=== PATIENT | female | born 1990 | race African-American/Black ===

== ENCOUNTER 2017-06-02 16:16 | Emergency (ER) | payer MEDICAID ==
[~2017-06-02] VITALS: Ht 172.7 cm; Wt 69.0 kg
[2017-06-02] MEDS ORDERED: KETOROLAC 60MG/2ML VIAL IM ONE (18:15)
[2017-06-02] MEDS ORDERED: DIAZEPAM 2 MG TABLET PO ONE (18:15)
[2017-06-02 19:30] VITALS: BP 127/79
== END 2017-06-02 20:53 | disposition home or self-care (01) ==
LOC: ER 17:22
DX: S16.1XXA Strain of muscle, fascia and tendon at neck level, initial encounter (principal); M41.80 Other forms of scoliosis, site unspecified; Y93.79 Activity, other specified sports and athletics; Y93.89 Activity, other specified; Y92.89 Other specified places as the place of occurrence of the external cause
CPT/HCPCS: 72125; 81025; 96372; 99284; J1885

== ENCOUNTER 2018-12-17 07:53 | Emergency (ER) | payer SELFPAY ==
[~2018-12-17] VITALS: Ht 175.3 cm; Wt 68.0 kg
[2018-12-17 08:23] VITALS: BP 112/62
== END 2018-12-17 11:28 | disposition home or self-care (01) ==
LOC: ER 07:53
DX: H72.91 Unspecified perforation of tympanic membrane, right ear (principal); F12.90 Cannabis use, unspecified, uncomplicated; F17.210 Nicotine dependence, cigarettes, uncomplicated
CPT/HCPCS: 99283

== ENCOUNTER 2024-11-24 09:04 | Emergency (ER) | payer MEDICAID ==
[~2024-11-24] VITALS: Ht 172.7 cm; Wt 67.0 kg
[2024-11-24 09:16] VITALS: O2SAT 99
[2024-11-24] MEDS ORDERED: IBUP-2028 MT (11:17)
[2024-11-24] MEDS ORDERED: CYCL25PO15 MT (11:18)
[2024-11-24] MEDS: CYCLOBENZAPRINE 10MG TABLET PO ONE (12:01)
[2024-11-24] MEDS: KETOROLAC 15MG/ML VIAL IM ONE (12:01)
[2024-11-24 12:15] VITALS: BP 118/76; PULSE 94; RESP 18; TEMP 36.9; O2SAT 99
== END 2024-11-24 12:17 | disposition home or self-care (01) ==
LOC: ER 09:04
DX: M25.571 Pain in right ankle and joints of right foot (principal); F10.90 Alcohol use, unspecified, uncomplicated; F12.90 Cannabis use, unspecified, uncomplicated; F17.210 Nicotine dependence, cigarettes, uncomplicated; Y90.9 Presence of alcohol in blood, level not specified
CPT/HCPCS: 99284; 73610; 73630; 96372; J1885

== ENCOUNTER 2024-11-27 18:26 | Emergency (ER) | payer MEDICAID ==
[~2024-11-27] VITALS: Ht 174 cm; Wt 67.1 kg
[~2024-11-27 18:26] MED LIST: IBUP-2028 MT
[2024-11-27 18:28] VITALS: O2SAT 98
[2024-11-27] MEDS ORDERED: T3 PO (20:13)
[2024-11-27 21:03] VITALS: BP 123/78; PULSE 64; RESP 17; TEMP 37.1; O2SAT 98
[2024-11-27] MEDS: ACETAMINOPHEN WITH CODEINE 300/30MG TABLET PO ONE (21:03)
== END 2024-11-27 21:05 | disposition home or self-care (01) ==
LOC: ER 18:32
DX: M79.672 Pain in left foot (principal); M21.611 Bunion of right foot; M21.612 Bunion of left foot; F10.90 Alcohol use, unspecified, uncomplicated; F12.90 Cannabis use, unspecified, uncomplicated; Y90.9 Presence of alcohol in blood, level not specified
CPT/HCPCS: 99282

== ENCOUNTER 2024-12-26 14:36 | Emergency (ER) | payer MEDICAID ==
[~2024-12-26] VITALS: Ht 172.7 cm; Wt 67.3 kg
[~2024-12-26 14:36] MED LIST changes: +T3 PO
[2024-12-26 14:39] VITALS: O2SAT 96
[2024-12-26 14:56] VITALS: BP 135/60; PULSE 84; RESP 16; TEMP 36.8; O2SAT 98
[2024-12-26] MEDS: IBUPROFEN 600MG TABLET PO STA (15:22)
[2024-12-26] MEDS ORDERED: IBUP-2029 MT (16:16)
== END 2024-12-26 16:48 | disposition home or self-care (01) ==
LOC: ER 14:36
DX: M54.6 Pain in thoracic spine (principal); F12.90 Cannabis use, unspecified, uncomplicated
CPT/HCPCS: 71045; 99283

== ENCOUNTER 2025-02-25 18:34 | Emergency (ER) | payer MEDICAID, OTHER ==
[~2025-02-25] VITALS: Ht 172.7 cm; Wt 65.7 kg
[~2025-02-25 18:34] MED LIST changes: +IBUP-2029 MT
[2025-02-25 18:51] VITALS: BP 130/68; PULSE 97; RESP 16; TEMP 36.8; O2SAT 98
[2025-02-26] MEDS ORDERED: IBUP-2029 MT (18:32)
== END 2025-02-25 20:40 ==
LOC: ER 18:34
DX: M79.10 Myalgia, unspecified site (principal); Z53.21 Procedure and treatment not carried out due to patient leaving prior to being seen by health care provider

== ENCOUNTER 2025-02-26 16:57 | Emergency (ER) | payer OTHER ==
[~2025-02-26] VITALS: Ht 172.7 cm; Wt 68.0 kg
[2025-02-26 17:00] VITALS: O2SAT 98
[2025-02-26 17:01] VITALS: BP 115/69; PULSE 114; RESP 16; TEMP 37; O2SAT 99
[2025-02-26] MEDS: CYCLOBENZAPRINE 10MG TABLET PO SCH (17:37)
[2025-02-26] MEDS: IBUPROFEN 600MG TABLET PO ONE (17:37)
[2025-02-26 17:59] LABS: BASOPHILS % 0.2 % (0.0-2.0); EOSINOPHILS % 0.8 % (0.0-5.0); HEMATOCRIT. 39.2 % (36.0-48.0); LYMPHOCYTES % 62.3 % (20.0-50.0); MEAN CORPUSCULAR HEMOGLOBIN 31.8 pg (28.0-32.0); MEAN CORPUSCULAR HGB CONC 33.1 g/dL (31.0-37.0); MEAN CORPUSCULAR VOLUME 95.9 fL (81.0-99.0); MEAN PLATELET VOLUME 7.1 fl (7.4-10.4); MONOCYTES % 7.4 % (2.0-8.0); NEUTROPHILS % 29.3 % (40.0-76.0); PLATELET 348 x1000/uL (130-400); RED BLOOD CELL COUNT 4.08 mill/uL (4.2-5.4); RED CELL DISTRIBUTION WIDTH 13.8 % (11.6-14.6); WHITE BLOOD COUNT 6.3 x1000/uL (4.5-11.0)
[2025-02-26 18:05] LABS: CHLORIDE 105 mEq/L (98-107); POTASSIUM 3.9 mEq/L (3.5-5.1); SODIUM 138 mEq/L (136-145)
[2025-02-26 18:06] LABS: CALCIUM 9.6 mg/dL (8.7-10.4); CARBON DIOXIDE 28 mEq/L (21-32)
[2025-02-26 18:11] LABS: CREATININE 1.6 mg/dL (0.6-1.0); GLUCOSE 78 mg/dL (70-105); UREA NITROGEN BLOOD 21 mg/dL (9-23)
[2025-02-26 18:12] LABS: TROPONIN I HIGH SENSITIVITY 5 ng/L (3.0-34)
[2025-02-26] MEDS ORDERED: IBUP-2029 MT (18:32)
== END 2025-02-26 18:44 | disposition home or self-care (01) ==
LOC: ER 16:57
DX: M79.10 Myalgia, unspecified site (principal); R07.89 Other chest pain; M54.9 Dorsalgia, unspecified; F10.90 Alcohol use, unspecified, uncomplicated; F12.90 Cannabis use, unspecified, uncomplicated; Z55.6 Problems related to health literacy; Z59.00 Homelessness unspecified; W22.09XA Striking against other stationary object, initial encounter; Y93.89 Activity, other specified; Y92.89 Other specified places as the place of occurrence of the external cause; Y99.8 Other external cause status; Y90.9 Presence of alcohol in blood, level not specified
CPT/HCPCS: 36415; 71045; 80048; 84484; 85025; 93005; 99285